=== PATIENT | female | born 1940 | race Caucasian/White ===

== ENCOUNTER → 2016-07-13 | Outpatient (REF) | payer MEDICARE, BC ==
[2016-07-13 13:00] LABS: CREATININE FOR GFR 1.04 MG/DL (0.55-1.02)
== END ==
LOC: M LABDRAW1 11:33
PROVIDERS: ATTEND Nurse Practitioner Women's Health
DX: Z01.812 Encounter for preprocedural laboratory examination (principal)

== ENCOUNTER → 2016-07-21 | Outpatient (CLI) | payer MEDICARE, BC ==
[~2016-07-21] MED LIST: ISOVUE-370 76% 100ML VIAL (Q9967) As Ordered ONE
--- NOTE | 2016-07-21 13:37 | REP ---
Clinical: Hematuria. Technique: Axial precontrast, contrast enhanced, and delayed images of the abdomen and pelvis using 100 ml Isovue 370 intravenous contrast material with delayed coronal and sagittal re-formations. Findings: Evaluation of the urinary tract system demonstrates normal symmetric enhancement to the bilateral kidneys and excretion into the collecting system on delayed imaging. Bilateral parapelvic cysts are identified measuring roughly up to 1.4 cm in the right kidney and 2.5 cm in left kidney. There is no nephrolithiasis, perinephric stranding, hydroureteronephrosis, or renal mass lesion. Liver, spleen, pancreas, bilateral adrenal glands are normal. Cholelithiasis noted without CT evidence for acute cholecystitis the enteric system is without obstruction or acute inflammatory process scattered colonic diverticula noted without acute diverticulitis. Pelvis demonstrates collapsed normal bladder and age-appropriate uterus/adnexa with pessary in satisfactory position. No pelvic fluid or ascites. No adenopathy. No free air. Abdominal aorta demonstrates mild atherosclerotic changes without aneurysm or dissection. Musculoskeletal structures demonstrate age-related changes including benign hemangioma at L1. Lung bases are clear. Impression: 1. Few bilateral parapelvic cysts. Otherwise normal appearance to the urinary tract system. 2. Cholelithiasis. 3. Scattered diverticula without acute diverticulitis. 4. Benign hemangioma involving the L1 vertebral body. Signed by Hosea Paris MD 07/21/2016 01:28 P
== END ==
LOC: M RAD 12:44
PROVIDERS: ATTEND Obstetrics & Gynecology
DX: R31.9 Hematuria, unspecified (principal)
CPT/HCPCS: 74178; Q9967

== ENCOUNTER → 2016-07-28 | Outpatient (REF) | payer MEDICARE, BC | LOC: M LAB REF 16:24 | PROVIDERS: ATTEND Obstetrics & Gynecology | DX: N32.81 Overactive bladder (principal) ==

== ENCOUNTER → 2016-08-18 | Outpatient (REF) | payer MEDICARE, BC | LOC: M LABDRAW1 15:33 | PROVIDERS: ATTEND Family Medicine | DX: R35.0 Frequency of micturition (principal); R73.01 Impaired fasting glucose ==

== ENCOUNTER → 2016-09-28 | Outpatient (REF) | payer MEDICARE, BC | LOC: M LAB REF 16:32 | PROVIDERS: ATTEND Nurse Practitioner Women's Health | DX: R35.0 Frequency of micturition (principal); R33.9 Retention of urine, unspecified; E31.9 Polyglandular dysfunction, unspecified ==

== ENCOUNTER → 2016-11-11 | Outpatient (REF) | payer MEDICARE, BC | LOC: M LAB REF 11:35 | PROVIDERS: ATTEND Nurse Practitioner Women's Health | DX: Z87.440 Personal history of urinary (tract) infections (principal); R31.29 Other microscopic hematuria ==

== ENCOUNTER → 2016-11-29 | Outpatient (REF) | payer MEDICARE, BC | LOC: M LAB REF 16:40 | PROVIDERS: ATTEND Nurse Practitioner Women's Health | DX: Z87.440 Personal history of urinary (tract) infections (principal); N39.0 Urinary tract infection, site not specified; R31.29 Other microscopic hematuria ==

== ENCOUNTER → 2016-12-15 | Outpatient (REF) | payer MEDICARE, BC | LOC: M LAB REF 16:18 | PROVIDERS: ATTEND Nurse Practitioner Women's Health | DX: Z87.440 Personal history of urinary (tract) infections (principal); R31.29 Other microscopic hematuria ==

== ENCOUNTER → 2016-12-29 | Outpatient (REF) | payer MEDICARE, BC | LOC: M LAB REF 17:37 | PROVIDERS: ATTEND Obstetrics & Gynecology | DX: Z87.440 Personal history of urinary (tract) infections (principal); R35.1 Nocturia ==

== ENCOUNTER → 2017-01-04 | Outpatient (REF) | payer MEDICARE, BC ==
[~2017-01-04] MED LIST changes: +ASPI81TA85 PO; +ATEN50TA2 PO; +ATOR1TAB21 PO; -ISOVUE-370 76% 100ML VIAL (Q9967) As Ordered ONE; +LISI-538 PO; +MYRB25TA PO
[2017-01-04 20:04] LABS: YEAST LIKE CELL URINE AUTO MODERATE
== END ==
LOC: M LAB REF 17:13
PROVIDERS: ATTEND Obstetrics & Gynecology
DX: Z87.440 Personal history of urinary (tract) infections (principal); Z79.899 Other long term (current) drug therapy

== ENCOUNTER → 2017-01-28 | Outpatient (REF) | payer MEDICARE, BC | LOC: M LAB REF 16:16 | PROVIDERS: ATTEND Obstetrics & Gynecology | DX: Z87.440 Personal history of urinary (tract) infections (principal) ==

== ENCOUNTER 2017-02-08 12:58 | Inpatient (IN) | payer MEDICARE, BC ==
[~2017-02-08] VITALS: Ht 162.6 cm; Wt 87.0 kg
[2017-02-08] MEDS ORDERED: ATEN50TA2 PO (13:24)
[2017-02-08] MEDS ORDERED: ATOR1TAB21 PO (13:24)
[2017-02-08] MEDS ORDERED: ASPI81TA85 PO (13:24)
[2017-02-08] MEDS ORDERED: MYRB25TA PO (13:24)
[2017-02-08] MEDS ORDERED: LISI-538 PO (13:24)
[2017-02-08] MEDS ORDERED: NS 500 ML IV ONE (14:00)
--- NOTE | 2017-02-08 14:23 | REP ---
CT of the brain without IV contrast: There are no comparisons. There is no subdural or epidural hematoma. There is no hemorrhage, edema, mass effect or midline shift. Cortical stripe is unremarkable. Ventricles are normal size and midline. The visualized paranasal sinuses and mastoid air cells are clear. Impression: There is no hemorrhage, acute infarct or mass. No subdural or epidural hematoma. Otherwise, negative CT study of the brain. Signed by Matthieu Antony MD 02/08/2017 02:14 P
--- NOTE | 2017-02-08 14:44 | REP ---
AP PORTABLE CHEST: 02/08/2017 COMPARISON: 04/28/2016 CLINICAL HISTORY: Chest pain. The lung shields are well inflated. There is no pleural effusion, lateral pleural thickening, apical scarring, pneumothorax. Heart, mediastinal, hilar contours normal. Aorta and airway intact. Bony thorax shows no focal lesion. IMPRESSION: 1. No acute cardiopulmonary change. Stable chest. Signed by Naresh Skinner MD 02/08/2017 07:04 P
[2017-02-08 14:51] LABS: BASO % 0.2 % (0.0-1.0); EOS # 0.1 K/mm3 (0.0-0.50); LARGE UNSTAINED CELL # 0.1 K/mm3 (0.0-0.4); LARGE UNSTAINED CELL % 1.3 % (0.0-4.0); LYMPH # 1.6 K/mm3 (1.5-4.5); LYMPH % 15.4 % (24.0-44.0); MEAN CORPUSCULAR HEMOGLOBIN 28.1 pg (27.0-33.0); MEAN CORPUSCULAR HGB CONC 32.3 g/dl (32.0-36.5); MONO # 0.5 K/mm3 (0.0-0.8); MONO % 5.1 % (0.0-5.0); NEUTROPHILS # 7.6 K/mm3 (1.8-7.7); PLATELET COUNT, AUTOMATED 418 k/mm3 (150-450); RED CELL DISTRIBUTION WIDTH 14.6 % (11.5-14.5); WHITE BLOOD COUNT 9.9 K/mm3 (4.0-10.0)
[2017-02-08 14:55] LABS: INR 1.07
[2017-02-08 15:07] LABS: ALBUMIN 3.2 GM/DL (3.2-5.2); ALBUMIN/GLOBULIN RATIO 0.91 (1.00-1.93); ALKALINE PHOSPHATASE 92 U/L (45-117); ALT/SGPT 13 U/L (12-78); ANION GAP 12 MEQ/L (8-16); AST/SGOT 9 U/L (15-37); BILIRUBIN,DIRECT 0.1 MG/DL (0.0-0.2); BILIRUBIN,TOTAL 0.4 MG/DL (0.2-1.0); BLOOD UREA NITROGEN 82 MG/DL (7-18); CALCIUM LEVEL 9.1 MG/DL (8.8-10.2); CARBON DIOXIDE LEVEL 14 MEQ/L (21-32); CHLORIDE LEVEL 109 MEQ/L (98-107); CREATININE FOR GFR 3.96 MG/DL (0.55-1.02); GLOMERULAR FILTRATION RATE 11.7 (>39); GLUCOSE, FASTING 105 MG/DL (83-110); SODIUM LEVEL 135 MEQ/L (136-145); TOTAL PROTEIN 6.7 GM/DL (6.4-8.2)
[2017-02-08 15:22] LABS: POTASSIUM SERUM 6.5 MEQ/L (3.5-5.1)
[2017-02-08] MEDS ORDERED: SOD POLYSTYRENE SULFONATE SUSP 15 GM/60 ML UD PO ONE ×3 (15:45→23:00)
--- NOTE | 2017-02-08 17:32 | REP ---
RENAL ULTRASOUND: HISTORY: Renal failure. The kidneys are normal in echogenicity. The right kidney measures 4.2 cm in transverse by 4.7 cm in AP x 10.6 cm in cephalocaudal dimensions. The left kidney measures 4 cm in transverse x 4.9 cm in AP x 10.5 cm in cephalocaudal dimensions. There is mild to moderate hydronephrosis and hydroureter bilaterally. There is no mass. Calcifications are present in the gallbladder consistent with cholelithiasis. Debris is present in the urinary bladder. IMPRESSION: 1. There is mild to moderate hydronephrosis and hydroureter bilaterally. 2. Cholelithiasis. Signed by Kranthi Escobar MD 02/08/2017 05:53 P
[2017-02-08] MEDS ORDERED: cefTRIAXone SOD 2 GM in D5W MINI-BAG PLUS 50 ML IV SCH (18:00)
[2017-02-08] MEDS ORDERED: ACETAMINOPHEN TAB 650MG DOSE (2X325MG) PO PRN (18:30)
[2017-02-08] MEDS ORDERED: NS 1,000 ML IV SCH (18:30)
[2017-02-08] MEDS ORDERED: ONDANSETRON 4MG/2ML VIAL (J2405) IV PRN (18:30)
[2017-02-08] MEDS ORDERED: PANTOPRAZOLE 40MG INJ (PROTONIX) (C9113) IV SCH (18:30)
[2017-02-08 19:40] VITALS: BP 134/75
[2017-02-08 20:46] LABS: PERCENT SATURATION 13.7 % (13.2-45.0)
[2017-02-08 20:48] LABS: CALCIUM LEVEL 9.1 MG/DL (8.8-10.2); CREATININE FOR GFR 3.86 MG/DL (0.55-1.02); GLOMERULAR FILTRATION RATE 12.1 (>39)
--- NOTE | 2017-02-08 20:50 | REPUSA ---
CLINICAL HISTORY: Priors--Hydronephrosis, nephrolithiasis, ureteral stone? - Patient said no abdomen /flank pain. TECHNIQUE: Multiple axial, coronal, sagittal CT images were obtained through the abdomen and pelvis without administration of oral or IV contrast material. FINDINGS: The liver is of uniform attenuation without mass or defect. There is no intra or extrahepatic biliar y ductal dilatation. The spleen is normal. The gallbladder is packed with calcified gallstones, the largest of which measures 13 mm. A small hiatal hernia is present. A small fat-containing umbilica l hernia is seen. The pancreas is of normal contour and attenuation characteristics. There is no cheryl dence of adrenal mass. The kidneys are normal in size, shape and configuration. There is evidence of severe bilateral hydro ureteronephrosis. There is a calcification noted adjacent to the left distal ureter measuring 2.5 mm . Passive renal calculus is not totally excluded. There is evidence of stranding adjacent to the ur eters as well as bladder. Bilateral ureteritis is suspected. There is no evidence for appendicitis. There is no bowel wall thickening. No evidence for small or large bowel obstruction. There is no evidence of abdominal ascites or lymphadenopathy. There is no evidence of intrinsic or extrinsic bladder mass. There is no pelvic ascites or lymphaden opathy. The uterus and ovaries are grossly unremarkable. A pessary is in place. There is evidence of bladd er prolapse. There is bladder wall thickening which measures up to 7 mm, please correlate clinically to exclude cystitis. Images of the lung bases show no evidence of pleural or parenchymal mass. There are no pleural effus ions. The bony structures are free of lytic or blastic lesions. IMPRESSION: 1. The gallbladder is packed with calcified gallstones, the largest of which measures 13 mm. 2. A small hiatal hernia is present. 3. A small fat-containing umbilical hernia is seen. 4. A pessary is in place. There is evidence of bladder prolapse. There is bladder wall thickening which measures up to 7 mm, please correlate clinically to exclude cystitis. 5. There is evidence of severe bilateral hydroureteronephrosis. There is evidence of stranding gardenia cent to the ureters as well as bladder. Bilateral ureteritis is suspected. 6. There is a calcification noted adjacent to the left distal ureter measuring 2.5 mm. Passive felicia l calculus is not totally excluded. Thank you for your kind referral of this patient. We appreciate the opportunity to participate in thi s patient's care.
[2017-02-08 20:54] LABS: FOLATE 10.6 NG/ML (>5.4)
[2017-02-08 20:58] LABS: POTASSIUM SERUM 5.8 MEQ/L (3.5-5.1)
[2017-02-08] MEDS ORDERED: CALCIUM GLUCONATE 1,000 MG in D5W MINI-BAG PLUS 100 ML IV ONE (21:15)
--- NOTE | 2017-02-08 21:16 | HPE ---
DATE OF ADMISSION: 02/08/2017 TIME PATIENT WAS SEEN: 1730 hours PRIMARY CARE PROVIDER: Dr. Angelina Caputo CHIEF COMPLAINT: Acute renal failure, sent by Dr. Hill's office. HISTORY OF THE PRESENT ILLNESS: A 76-year-old female with past medical history of recurrent urinary tract infection (UTI), hyperlipidemia, hypertension, overactive bladder, presented with acute renal failure, was called by Dr. Hill's office for patient to come to the emergency room this afternoon. Per patient, she has been feeling a little bit lightheaded for about 2 weeks, and she had a urinary tract infection back in middle of January and received unspecified antibiotic. Per patient, it was sulfa-based; therefore, possibly Bactrim. However, the patient could not go into detail. Per patient, she has completed the course and also a few weeks ago, the patient started having hypotensive episodes with blood pressure in the 70s over 60s and her primary care provider has stopped her atenolol and also yesterday just stopped her lisinopril. She stated that over the past 2 weeks, she has also been getting more shortness of breath when she walks stairs. Otherwise, denies any chest pain, denies any fever. Admits to chills. Denies any abdominal pain, nausea, vomiting, diarrhea, constipation. Her last bowel movement was yesterday, which was normal. Denies any blood in the urine. However, she does have a chronic overactive bladder. According to her, she would have incontinence as well. She denies any recent traveling or sick contact. Denies any back pain. ALLERGIES: No known drug allergies. MEDICATIONS: - atenolol 50 mg, one tablet by mouth daily - lisinopril 20 mg, one tablet by mouth daily, which was discontinued by primary care just before the admission CURRENT HOME MEDICATIONS: - aspirin 81 mg one tablet by mouth daily - atorvastatin 20 mg one tablet by mouth daily - Myrbetriq 25 mg one tablet by mouth daily PAST MEDICAL HISTORY: 1. Recurrent urinary tract infection (UTI) monthly per patient. 2. Hyperlipidemia. 3. Overactive bladder. 4. Hypertension. PAST SURGICAL HISTORY: None per patient. SOCIAL HISTORY: Patient denies any smoking. Drinks occasionally. Denies any recreational drug use. Patient lives alone with two cats. The patient does have children in [place] who come to visit her regularly. FAMILY HISTORY: Patient's mother is still alive, who is 98 years old. Father in World War II. REVIEW OF SYSTEMS: GENERAL: Patient admits to a few pounds weight loss over the past few weeks due to she has been feeling drowsy and lightheaded and does not want to eat. Denies any recent traveling or sick contact. Denies any fever. Admits to chills. HEENT: Denies any changes with vision, smell, hearing or taste. CARDIOVASCULAR: Denies any chest pain. Admits to exertional shortness of breath, and she has been following with Dr. Gottlieb recently. Per patient, she had a negative echocardiogram at Dr. Gottlieb's office. Denies any palpitations and sleeps with two pillows at night. Denies any shortness of breath if she lays flat. PULMONARY: Denies any pulmonary disease. Denies any shortness of breath, any wheezing, any cough. GASTROINTESTINAL: Denies any abdominal pain, nausea, vomiting, diarrhea, constipation. Denies any blood in the stool. GENITOURINARY: Admits to overactive bladder at baseline. Admits to stress incontinence. Admits to seeing Dr. Hill at her office and recurrent urinary tract infection (UTIs) about once every month. Denies any blood in the urine. MUSCULOSKELETAL: Denies any pain anywhere. HEMATOLOGY/ONCOLOGY: Denies any easy of bruising or any bleeding anywhere. ENDOCRINE: Denies any polydipsia, polyuria. Denies any heat intolerance. Admits to feeling cold more often recently, especially in the past 2 weeks. NEUROLOGICAL: Denies any weakness on any one side of her body; however, she has been feeling drowsy for the past 2 weeks. Denies any change in sensation, however, denies any spinning sensation. PSYCHIATRIC: Denies any anxiety, depression. PHYSICAL EXAMINATION: Temperature 98, pulse 98, respirations 18, blood pressure 140/68, oxygen was saturating at 96% on room air. Her initial presenting blood pressure was 98/64. GENERAL: The patient is a pleasant elderly female who was alert, awake, oriented times three, does not appear to be in distress, sitting comfortably in her bed with the head elevated at 30 degrees. HEENT: Normocephalic, atraumatic. Extraocular motor intact. Mucosa moist. NECK: Supple. No neck lymphadenopathy. CARDIOVASCULAR: Tachycardic. Normal S1, S2. No murmurs, rubs or gallops. LUNGS: Clear to auscultation bilaterally. No wheezing, rales, or rhonchi. ABDOMEN: Positive bowel sounds. Soft, nontender, nondistended. No peritoneal signs. No ecchymosis. EXTREMITIES: No edema, clubbing or cyanosis. SKIN: Warm and dry. NEUROLOGICAL: Cranial nerves II-XII intact. No focal neurologic deficit. LABORATORY DATA: WBC 9.9, hemoglobin 11.7, hematocrit is 36.2 with a platelet count of 418, an MCV of 87. Neutrophil percentage was 77, lymphocyte 15.4, monocyte 5.1. Sodium 135, potassium elevated at 6.5, chloride 109, bicarbonate was low at 14, anion gap 12, BUN 82, creatinine 3.96, GFR 11.7, fasting glucose 105, lactic acid 1.1, calcium was 9.1, magnesium 2.3, total bilirubin 0.4, direct bilirubin 0.1, AST 9, ALT 13, alkaline phosphatase 92, total CK 46, CK-MB 1, troponin less than 0.02. BNP was 7.4, total protein 6.7, albumin 3.2, TSH 2.5. PT 14, INR 1.07. The patient's urinalysis shows turbid appearance, 2+ protein, 1+ glucose, 1+ blood, 3+ leukocyte esterase, WBC too many too count, RBC was 7, bacteria was 3+. Urine lytes shows osmolality of 273, which was low, urine creatinine 96, urine sodium 49. Blood culture times two are pending. Urine culture has been ordered. The patient had a CT head without contrast in the emergency room this afternoon - shows no hemorrhage, no acute infarction or mass, no subdural or epidural hematoma. Negative CT study of the brain. She also had a portable chest x-ray, shows no acute cardiopulmonary changes, stable chest. She also had a renal ultrasound, shows mild to moderate bilateral hydronephrosis and hydroureter, and cholelithiasis. The patient had a CT of the abdomen and pelvis done without contrast. The result is pending. ASSESSMENT AND PLAN: A 76-year-old female with a past medical history of recurrent urinary tract infection, seen in Dr. Hill's office, hyperlipidemia, hypertension, overactive bladder, was sent by Dr. Hill's office due to abnormal lab, presented with: 1. Acute kidney injury, on chronic kidney disease with a creatinine of 3.96, glomerular filtration rate (GFR) of only 11.7. Renal ultrasound shows bilateral hydronephrosis and hydroureter. Urology was consulted, recommended CT of the abdomen and pelvis, which has been done; however, result is pending. At this point, the patient's acute renal failure was likely secondary to pyelonephritis and acute urinary tract infection. Rocephin 2 grams IV every 24 hours has been started. If the patient does show an obstructive uropathy, if procedure is required, possibly patient may need to be transferred due to nephrostomy tube cannot be arranged overnight at [facility] per urology. Also, due to [facility] no longer has an interventional radiologist. At this point, will recheck basic metabolic panel at midnight and continue to monitor the patient's intake and output. 2. Hyperkalemia with potassium of 6.5. Likely secondary to acute renal injury. Kayexalate was given in the emergency room. A repeat basic metabolic panel was ordered. Result is pending. Will follow. At this point, the patient does not have lactic acidosis, and she did have a bowel movement after Kayexalate. Electrocardiogram (EKG) did not show significant T wave spikes. At this point, will continue to monitor and will trend the patient's potassium level. 3. Anemia with a hemoglobin of 11.7, appears to be reduced based on patient's baseline. Last hemoglobin was 13.1 in January 2016. Will order occult blood and iron study. 4. Hyperlipidemia. Continue home statin. 5. Overactive bladder. Will hold the patient's Myrbetriq for now. 6. History of hypertension. The patient is not on any blood pressure medication, which was discontinued prior to admission by primary. Will continue to monitor patient's blood pressure closely for any signs of septic shock. 7. Deep vein thrombosis (DVT) prophylaxis with heparin 5000 units subcutaneously every 8 hours. 8. Fluids, electrolytes and diet: The patient is on normal saline at a rate of 70 mL per hour. The patient does have hyperkalemia and repeat lab is pending. The patient is currently nothing by mouth due to possible urology procedure this evening versus in the morning. DISPOSITION: Patient has acute renal failure, possibly secondary to urinary tract infection versus obstructive uropathy. Urology has been consulted. Will follow the recommendation. Will followup with result from CT of abdomen and pelvis. The patient has been discussed with attending doctor, Dr. Riya Castillo. My preceptor for this patient encounter was Dr. Riya Castillo. The preceptor was physically present in the building during the encounter and was fully available. As needed, all aspects of the patient interview, examination, medical decision making process, and medical care plan development were reviewed and approved by the preceptor. The preceptor is aware and concurs with the plan as stated in the body of this note and will attest to such by his/her co-signature. I have seen and examined the patient, and discussed the case with the resident. I agree with the following assessment mentioned above. NATALI
[2017-02-08] MEDS ORDERED: HEPARIN SOD (PORCINE) 5000 UNITS/ML VIAL SC SCH (22:00)
[2017-02-08 22:38] VITALS: BP 116/65
[2017-02-08] MEDS ORDERED: SLF 3 ML SYR IV PRN (23:00)
[2017-02-09 00:39] VITALS: BP 128/65
[2017-02-09 01:01] LABS: BASO % 0.3 % (0.0-1.0); EOS # 0.1 K/mm3 (0.0-0.50); EOS % 1.1 % (0.0-3.0); LARGE UNSTAINED CELL # 0.1 K/mm3 (0.0-0.4); LARGE UNSTAINED CELL % 1.2 % (0.0-4.0); LYMPH # 1.5 K/mm3 (1.5-4.5); LYMPH % 12.7 % (24.0-44.0); MEAN CORPUSCULAR HEMOGLOBIN 27.8 pg (27.0-33.0); MONO # 0.6 K/mm3 (0.0-0.8); MONO % 5.3 % (0.0-5.0); NEUTROPHILS # 9.1 K/mm3 (1.8-7.7); NEUTROPHILS % 79.4 % (36.0-66.0); PLATELET COUNT, AUTOMATED 458 k/mm3 (150-450); RED CELL DISTRIBUTION WIDTH 14.4 % (11.5-14.5); WHITE BLOOD COUNT 11.5 K/mm3 (4.0-10.0)
[2017-02-09 01:07] LABS: CALCIUM LEVEL 9.4 MG/DL (8.8-10.2); CREATININE FOR GFR 3.56 MG/DL (0.55-1.02); GLOMERULAR FILTRATION RATE 13.3 (>39)
[2017-02-09 01:08] LABS: POTASSIUM SERUM 5.9 MEQ/L (3.5-5.1)
--- NOTE | 2017-02-09 05:12 | DSES ---
DATE OF ADMISSION: 02/08/2017 DATE OF DISCHARGE: 02/09/2017 ADMISSION DIAGNOSES: 1. Acute kidney injury on chronic kidney disease. 2. Hyperkalemia. 3. Chronic anemia. 4. Hyperlipidemia. 5. Overactive bladder. 6. History of hypertension. DISCHARGE DIAGNOSES: 1. Acute renal failure secondary to bilateral hydroureteronephrosis secondary to possible urinary tract infection (UTI). 2. Hyperkalemia. 3. Anemia. RESIN PAINTER: Dr. Dewitt from urology. PROCEDURES AND IMAGING: On 02/08/2017, patient had a negative CT head without contrast; and on 02/08/2017, patient had a portable chest x-ray done, which shows no acute changes. On 02/08/2017, patient also had a renal ultrasound, which shows mild to moderate hydronephrosis with hydroureter bilaterally and cholelithiasis. A CT of abdomen and pelvis was done later on and shows a gallbladder that was packed with calcified gallstones, largest one measuring 13 mm. A small hiatal hernia present. A small fat-containing umbilical hernia is seen. Pessary is in place. Evidence of bladder prolapse, bladder wall thickening measuring up to 7 mm; correlate clinically to exclude cystitis, and evidence of severe bilateral hydroureteronephrosis. Evidence of stranding adjacent to ureter as well as bladder. Bilateral ureteritis suspected. Calcification noted adjacent to the left distal ureter measuring 2.5 mm. Passive renal calculus is not totally excluded. LABS: WBC 9.9, hemoglobin 11.7, hematocrit 36.2 with a platelet count of 418. Sodium 138, potassium 5.8, chloride 112, bicarbonate 15, anion gap was 11, BUN was 80, and creatine 3.86. GFR 12.1, fasting glucose 120. Osmolality 314. Calcium 9.1. Iron 28, TIBC 205, transferrin saturation 13.7, ferritin 172. Magnesium was 2.3. BNP was only 7.4. Vitamin B12 of 581, folate 10.6. Coagulation shows INR of 1.07. Patient's urinalysis shows turbid urine, 2+ protein, 1+ glucose, 1+ blood, 3+ leukocyte esterase, WBC too many to count, RBC was 7, and 3+ bacteria. Urine osmolality was 273. Urine creatine was 96. Urine sodium is 49. Emergency room also ordered urine metanephrine, metanephrine to creatine ratio, and normetanephrine, which were all pending. Urine culture is pending. Blood culture times two are pending. HISTORY OF PRESENT ILLNESS: 76-year-old female with past medical history of recurrent UTI every month, follows Dr. Hill (gynecology), hyperlipidemia, hypertension, overactive bladder. Presented with acute renal failure. Was called to come to emergency room by Dr. Hill' office after result of blood work. Per patient, she has been feeling lightheaded for 2 weeks and she had a urinary tract infection around 2 weeks ago and received unspecified antibiotic. Per patient, it was sulfa-based and possibly Bactrim. Patient could not go into detail. She stated that she completed the course. However, she has been having hypotensive episode with blood pressure 70s over 60s, and her primary care provider has initially stopped atenolol and yesterday also stopped lisinopril. Patient stated that she has been also getting more shortness of breath when she walks stairs; otherwise, she denies any chest pain or any fever. Admits to chills for the past 2 weeks. Denies any abdominal pains, nausea, vomiting, diarrhea, constipation. Her last bowel movement was yesterday. It was normal per patient. Denies any blood in the urine. However, she does have a chronic overactive bladder. According to patient, she would have incontinence times two and she denies any recent traveling or sick contact. HOSPITAL COURSE: Urology was initially consulted, recommended a CT of abdomen and pelvis done, and the patient was started on Rocephin 2 grams every 24 hours for positive urinalysis for possible UTI. For patient's hyperkalemia, patient was given Kayexalate in the emergency room and a repeat potassium was found to be 5.9. At this point, CT result came back and shows bilateral hydroureteronephrosis, and urology recommended bilateral nephrostomy tube placement. However, upon contacting radiology, [facility] no longer does interventional nephrostomy tube due to lack of interventional radiologist. Therefore, urology has recommended to transfer patient to [facility], and [facility] transfer center was called, accepted the transfer, and patient has been accepted under care of Dr. Sosa; and this evening, patient agreed to transfer. DISCHARGE CONDITION: Stable. DISCHARGE TO: Patient will be transferred to [facility]. FOLLOWUP: Upon discharge from [facility], patient should see Dr. Angelina Caputo within 1 week upon discharge. DISCHARGE INSTRUCTIONS: If patient develops additional fever or chills upon discharge, patient should contact primary care provider or go to emergency room. Patient has been discussed with attending doctor, Dr. Moore. My preceptor for this patient encounter was Dr. Dillon Moore. The preceptor was physically present in the building during the encounter and was fully available. As needed, all aspects of the patient interview, examination, medical decision making process, and medical care plan development were reviewed and approved by the preceptor. The preceptor is aware and concurs with the plan as stated in the body of this note and will attest to such by his/her cosignature.
[2017-02-09] MEDS ORDERED: SLF 3 ML SYR IV SCH (06:00)
--- NOTE | 2017-02-10 23:35 | ECGEPIP ---
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
[2017-02-17 14:14] LABS: URINE METANEPHR/CREAT RATIO 0.9 (0.0-1.0)
== END 2017-02-09 00:57 | DRG 694 ==
LOC: M ED 12:58 → M ED INP 18:21 → M PCU 19:35
PROVIDERS: ADMIT Internal Medicine; ATTEND Internal Medicine
DX: N13.1 Hydronephrosis with ureteral stricture, not elsewhere classified (principal); N17.9 Acute kidney failure, unspecified; N39.0 Urinary tract infection, site not specified; E87.5 Hyperkalemia; E78.5 Hyperlipidemia, unspecified; D64.9 Anemia, unspecified; Z87.440 Personal history of urinary (tract) infections; N32.81 Overactive bladder; Z79.82 Long term (current) use of aspirin; Z79.899 Other long term (current) drug therapy

== ENCOUNTER → 2017-02-17 | Outpatient (REF) | payer MEDICARE, BC ==
[2017-02-17 13:28] LABS: BASO % 0.4 % (0.0-1.0); EOS # 0.2 K/mm3 (0.0-0.50); EOS % 2.8 % (0.0-3.0); LARGE UNSTAINED CELL # 0.1 K/mm3 (0.0-0.4); LYMPH # 1.5 K/mm3 (1.5-4.5); LYMPH % 20.6 % (24.0-44.0); MEAN CORPUSCULAR HEMOGLOBIN 27.1 pg (27.0-33.0); MEAN CORPUSCULAR HGB CONC 31.2 g/dl (32.0-36.5); MONO # 0.3 K/mm3 (0.0-0.8); MONO % 4.6 % (0.0-5.0); NEUTROPHILS # 4.8 K/mm3 (1.8-7.7); NEUTROPHILS % 70.7 % (36.0-66.0); PLATELET COUNT, AUTOMATED 349 k/mm3 (150-450); RED CELL DISTRIBUTION WIDTH 14.7 % (11.5-14.5); WHITE BLOOD COUNT 6.9 K/mm3 (4.0-10.0)
[2017-02-17 13:48] LABS: ALBUMIN 3.1 GM/DL (3.2-5.2); BILIRUBIN,TOTAL 0.3 MG/DL (0.2-1.0); CALCIUM LEVEL 8.3 MG/DL (8.8-10.2); CREATININE FOR GFR 1.36 MG/DL (0.55-1.02); GLOMERULAR FILTRATION RATE 40.2 (>39); POTASSIUM SERUM 4.5 MEQ/L (3.5-5.1); TOTAL PROTEIN 6.2 GM/DL (6.4-8.2)
== END ==
LOC: M LAB REF 12:44
PROVIDERS: ATTEND Family Medicine
DX: I10 Essential (primary) hypertension (principal)

== ENCOUNTER → 2017-03-04 | Outpatient (REF) | payer MEDICARE, BC | LOC: M LAB REF 10:28 | PROVIDERS: ATTEND Obstetrics & Gynecology | DX: Z87.440 Personal history of urinary (tract) infections (principal); R31.29 Other microscopic hematuria ==

== ENCOUNTER → 2017-03-22 | Outpatient (REF) | payer MEDICARE, BC ==
[2017-03-22 11:23] LABS: BASO % 0.5 % (0.0-1.0); EOS # 0.2 K/mm3 (0.0-0.50); EOS % 3.1 % (0.0-3.0); LARGE UNSTAINED CELL # 0.1 K/mm3 (0.0-0.4); LYMPH # 1.9 K/mm3 (1.5-4.5); LYMPH % 25.9 % (24.0-44.0); MEAN CORPUSCULAR HEMOGLOBIN 27.2 pg (27.0-33.0); MEAN CORPUSCULAR HGB CONC 31.1 g/dl (32.0-36.5); MEAN CORPUSCULAR VOLUME 87.5 fl (80.0-96.0); MONO # 0.5 K/mm3 (0.0-0.8); MONO % 6.3 % (0.0-5.0); NEUTROPHILS # 4.5 K/mm3 (1.8-7.7); NEUTROPHILS % 63.3 % (36.0-66.0); PLATELET COUNT, AUTOMATED 348 k/mm3 (150-450); RED CELL DISTRIBUTION WIDTH 14.5 % (11.5-14.5); WHITE BLOOD COUNT 7.1 K/mm3 (4.0-10.0)
[2017-03-22 11:48] LABS: ALBUMIN 3.2 GM/DL (3.2-5.2); ALBUMIN/GLOBULIN RATIO 1.03 (1.00-1.93); BILIRUBIN,TOTAL 0.3 MG/DL (0.2-1.0); CALCIUM LEVEL 8.7 MG/DL (8.8-10.2); CREATININE FOR GFR 1.19 MG/DL (0.55-1.02); GLOMERULAR FILTRATION RATE 46.9 (>39); POTASSIUM SERUM 3.9 MEQ/L (3.5-5.1); TOTAL PROTEIN 6.3 GM/DL (6.4-8.2)
== END ==
LOC: M LABDRAW1 09:29
PROVIDERS: ATTEND Family Medicine
DX: N17.8 Other acute kidney failure (principal)

== ENCOUNTER → 2017-03-22 | Outpatient (REF) | payer MEDICARE, BC ==
[2017-03-22 11:28] LABS: CALCIUM LEVEL 8.8 MG/DL (8.8-10.2); CREATININE FOR GFR 1.18 MG/DL (0.55-1.02); GLOMERULAR FILTRATION RATE 47.4 (>39)
== END ==
LOC: M LABDRAW1 09:34
DX: N13.30 Unspecified hydronephrosis (principal)

== ENCOUNTER → 2017-04-12 | Outpatient (CLI) | payer MEDICARE, BC ==
[~2017-04-12] MED LIST changes: +ISOVUE-370 76% 100ML VIAL (Q9967) As Ordered ONE
--- NOTE | 2017-04-12 19:07 | REP ---
Multiphase CT of the abdomen and pelvis: Studies performed without and with IV contrast. After IV contrast, multiphase scanning is performed. Comparison is 02/08/2017. 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 The right ureter is dilated. This is unchanged. However, there is no right ureteral calculus. This may be secondary to a stricture of the distal right ureter. There is mild right hydronephrosis. There is a mild left hydronephrosis. The left ureter is minimally dilated. There is no left ureteral calculus. The bladder is not distended. The bladder wall is diffusely mildly thickened. This could be artifact from under distension, cystitis or neoplasm. There is a pessary in the vaginal vault. This is unchanged. The uterus and adnexa are unremarkable. The visualized lung shields are unremarkable. The hepatic parenchyma is homogeneous on all phases of the study. There is a gallbladder calculus with rim calcification in the gallbladder fundus measuring 1.7 cm in diameter, not significantly changed. There are multiple other tiny gallbladder calculi, also unchanged. There is no biliary duct dilatation. The pancreas and spleen are unremarkable. The adrenals are unremarkable. The abdominal aorta is unremarkable. There is no bowel distension. Pelvis: There is sigmoid diverticulosis without diverticulitis. Impression: The right ureter is dilated. There is mild right hydronephrosis. The left ureter is mildly dilated. There is mild left hydronephrosis. There are no ureteral calculi on the right on the left. The ureteral dilatation may be secondary to distal ureteral structures. There is a pessary. The bladder is incompletely distended. There is circumferential bladder wall thickening, nonspecific, artifact from incomplete distension versus cystitis versus neoplasm. No ascites or adenopathy. Cholelithiasis without biliary duct dilatation, unchanged. No Signed by Matthieu Antony MD 04/12/2017 06:58 P
== END ==
LOC: M RAD 15:03
PROVIDERS: ATTEND Student in an Organized Health Care Education/Training Program
DX: R31.9 Hematuria, unspecified (principal)
CPT/HCPCS: 74178; Q9967

== ENCOUNTER → 2017-05-02 | Outpatient (REF) | payer MEDICARE, BC ==
[~2017-05-02] MED LIST changes: -ISOVUE-370 76% 100ML VIAL (Q9967) As Ordered ONE
== END ==
LOC: M LAB REF 16:10
PROVIDERS: ATTEND Obstetrics & Gynecology
DX: Z87.440 Personal history of urinary (tract) infections (principal); R31.29 Other microscopic hematuria

== ENCOUNTER → 2017-06-29 | Outpatient (REF) | payer MEDICARE, BC | LOC: M LAB REF 13:17 | PROVIDERS: ATTEND Family Medicine | DX: R35.0 Frequency of micturition (principal) ==

== ENCOUNTER → 2017-09-20 | Outpatient (REF) | payer MEDICARE, BC ==
[2017-09-20 12:26] LABS: ALBUMIN 3.4 GM/DL (3.2-5.2); ALKALINE PHOSPHATASE 99 U/L (45-117); ALT/SGPT 16 U/L (12-78); ANION GAP 9 MEQ/L (8-16); AST/SGOT 11 U/L (7-37); BILIRUBIN,TOTAL 0.4 MG/DL (0.2-1.0); BLOOD UREA NITROGEN 19 MG/DL (7-18); CALCIUM LEVEL 8.5 MG/DL (8.8-10.2); CARBON DIOXIDE LEVEL 26 MEQ/L (21-32); CHLORIDE LEVEL 106 MEQ/L (98-107); CHOLESTEROL LEVEL 239 MG/DL (<200); CHOLESTEROL RISK RATIO 4.509 (<5); CREATININE FOR GFR 1.03 MG/DL (0.55-1.30); GLOMERULAR FILTRATION RATE 55.5 (>39); GLUCOSE, FASTING 90 MG/DL (70-100); HDL CHOLESTEROL 53 MG/DL (>40); LDL CHOLESTEROL 154.4 MG/DL (<100); NON-HDL-C 186 MG/DL; POTASSIUM SERUM 4.6 MEQ/L (3.5-5.1); SODIUM LEVEL 141 MEQ/L (136-145); TOTAL PROTEIN 6.8 GM/DL (6.4-8.2); TRIGLYCERIDES LEVEL 158 MG/DL (<150)
== END ==
LOC: M LABDRAW1 11:18
DX: I10 Essential (primary) hypertension (principal); E78.2 Mixed hyperlipidemia
CPT/HCPCS: 80053

== ENCOUNTER → 2017-10-27 | Outpatient (REF) | payer MEDICARE, BC ==
[2017-10-27 11:23] LABS: ALBUMIN 3.7 GM/DL (3.2-5.2); ALBUMIN/GLOBULIN RATIO 1.09 (1.00-1.93); ALKALINE PHOSPHATASE 101 U/L (45-117); ALT/SGPT 22 U/L (12-78); ANION GAP 7 MEQ/L (8-16); AST/SGOT 13 U/L (7-37); BILIRUBIN,TOTAL 0.4 MG/DL (0.2-1.0); BLOOD UREA NITROGEN 18 MG/DL (7-18); CALCIUM LEVEL 8.7 MG/DL (8.8-10.2); CARBON DIOXIDE LEVEL 27 MEQ/L (21-32); CHLORIDE LEVEL 109 MEQ/L (98-107); CHOLESTEROL LEVEL 210 MG/DL (<200); CHOLESTEROL RISK RATIO 3.333 (<5); GLOMERULAR FILTRATION RATE 51.3 (>39); GLUCOSE, FASTING 81 MG/DL (70-100); HDL CHOLESTEROL 63 MG/DL (>40); LDL CHOLESTEROL 105.8 MG/DL (<100); NON-HDL-C 147 MG/DL; POTASSIUM SERUM 4.4 MEQ/L (3.5-5.1); SODIUM LEVEL 143 MEQ/L (136-145); TOTAL PROTEIN 7.1 GM/DL (6.4-8.2); TRIGLYCERIDES LEVEL 206 MG/DL (<150)
== END ==
LOC: M LABDRAW1 10:47
DX: E78.2 Mixed hyperlipidemia (principal)
CPT/HCPCS: 80053

== ENCOUNTER → 2018-04-05 | Outpatient (REF) | payer MEDICARE, BC ==
[2018-04-05 19:12] LABS: APPEARANCE, URINE TURBID (CLEAR); BACTERIA, URINE AUTO NEGATIVE (NEGATIVE); BILIRUBIN, URINE AUTO NEGATIVE (NEGATIVE); BLOOD, URINE BLOOD 3+ (NEGATIVE); COLOR, URINE YELLOW (YELLOW); GLUCOSE, URINE (UA) AUTO NEGATIVE (NEGATIVE); KETONE, URINE AUTO NEGATIVE (NEGATIVE); LEUKOCYTE ESTERASE, URINE AUTO 3+ (NEGATIVE); MUCUS, URINE SMALL (NEGATIVE); NITRITE, URINE AUTO NEGATIVE (NEGATIVE); PROTEIN, URINE AUTO 1+ mg/dL (NEGATIVE); RBC, URINE AUTO 26 /HPF (0-3); SPECIFIC GRAVITY URINE AUTO 1.017 (1.002-1.035); SQUAMOUS EPITHELIAL CELL UR AU 0 /HPF (0-6); UROBILINOGEN, URINE AUTO 0.2 mg/dL (0.0-2.0); WBC, URINE AUTO 1 /HPF (0-3)
== END ==
LOC: M LAB REF 17:08
DX: Z87.440 Personal history of urinary (tract) infections (principal)
CPT/HCPCS: 81001

== ENCOUNTER → 2018-04-26 | Outpatient (REF) | payer MEDICARE, BC ==
[2018-04-26 18:39] LABS: APPEARANCE, URINE CLOUDY (CLEAR); BACTERIA, URINE AUTO 1+ (NEGATIVE); BILIRUBIN, URINE AUTO NEGATIVE (NEGATIVE); BLOOD, URINE BLOOD 3+ (NEGATIVE); COLOR, URINE YELLOW (YELLOW); GLUCOSE, URINE (UA) AUTO NEGATIVE (NEGATIVE); KETONE, URINE AUTO NEGATIVE (NEGATIVE); LEUKOCYTE ESTERASE, URINE AUTO 3+ (NEGATIVE); MUCUS, URINE SMALL (NEGATIVE); NITRITE, URINE AUTO NEGATIVE (NEGATIVE); PROTEIN, URINE AUTO 1+ mg/dL (NEGATIVE); RBC, URINE AUTO TNTC /HPF (0-3); SPECIFIC GRAVITY URINE AUTO 1.017 (1.002-1.035); SQUAMOUS EPITHELIAL CELL UR AU 5 /HPF (0-6); UROBILINOGEN, URINE AUTO 0.2 mg/dL (0.0-2.0); WBC, URINE AUTO 88 /HPF (0-3)
== END ==
LOC: M LAB REF 17:02
DX: N32.81 Overactive bladder (principal); Z87.440 Personal history of urinary (tract) infections
CPT/HCPCS: 81001

== ENCOUNTER → 2018-06-07 | Outpatient (REF) | payer MEDICARE, BC ==
[2018-06-07 12:44] LABS: BASO % 0.4 % (0.0-1.0); EOS # 0.2 10^3/uL (0.0-0.50); EOS % 2.3 % (0.0-3.0); HEMATOCRIT 41.9 % (36.0-47.0); HEMOGLOBIN 13.1 g/dl (12.0-15.5); IMMATURE GRANULOCYTE % 0.3 % (0-3.0); LYMPH # 1.7 10^3/uL (1.5-4.5); LYMPH % 21.9 % (24.0-44.0); MEAN CORPUSCULAR HEMOGLOBIN 26.3 pg (27.0-33.0); MEAN CORPUSCULAR HGB CONC 31.3 g/dl (32.0-36.5); MEAN CORPUSCULAR VOLUME 84.1 fl (80.0-96.0); MONO # 0.7 10^3/uL (0.0-0.8); MONO % 8.8 % (0.0-5.0); NEUTROPHILS # 5.2 10^3/uL (1.8-7.7); NEUTROPHILS % 66.3 % (36.0-66.0); PLATELET COUNT, AUTOMATED 359 10^3/uL (150-450); RED BLOOD COUNT 4.98 10^6/uL (4.00-5.40); WHITE BLOOD COUNT 7.8 10^3/uL (4.0-10.0)
[2018-06-07 13:12] LABS: ALBUMIN 3.5 GM/DL (3.2-5.2); ALBUMIN/GLOBULIN RATIO 1.13 (1.00-1.93); ALKALINE PHOSPHATASE 95 U/L (45-117); ALT/SGPT 18 U/L (12-78); ANION GAP 9 MEQ/L (8-16); AST/SGOT 16 U/L (7-37); BILIRUBIN,TOTAL 0.5 MG/DL (0.2-1.0); BLOOD UREA NITROGEN 15 MG/DL (7-18); CALCIUM LEVEL 8.7 MG/DL (8.8-10.2); CARBON DIOXIDE LEVEL 26 MEQ/L (21-32); CHLORIDE LEVEL 108 MEQ/L (98-107); CREATININE FOR GFR 1.04 MG/DL (0.55-1.30); GLOMERULAR FILTRATION RATE 54.7 (>39); GLUCOSE, FASTING 88 MG/DL (70-100); POTASSIUM SERUM 4.3 MEQ/L (3.5-5.1); SODIUM LEVEL 143 MEQ/L (136-145); TOTAL PROTEIN 6.6 GM/DL (6.4-8.2)
== END ==
LOC: M LABDRAW1 12:20
DX: Z01.818 Encounter for other preprocedural examination (principal); E78.2 Mixed hyperlipidemia
CPT/HCPCS: 80053

== ENCOUNTER 2018-06-12 11:06 | Day surgery (SDC) | payer MEDICARE, BC ==
[2018-06-12] MEDS: LR 1,000 ML IV (11:32)
[2018-06-12] MEDS ORDERED: MIDAZOLAM INJ 2 MG/2 ML VIAL (J2250) As Ordered (11:33)
[2018-06-12] MEDS ORDERED: LIDOCAINE 2% INJ 100 MG/5 ML SDV (FOR ANES.) As Ordered (11:33)
[2018-06-12] MEDS ORDERED: PROPOFOL 200 MG/20 ML VIAL As Ordered (11:33)
[2018-06-12] MEDS ORDERED: dexameTHASONE 4 MG/ML 1ML VIAL (J1100) As Ordered (11:33)
[2018-06-12] MEDS ORDERED: ONDANSETRON 4MG/2ML VIAL (J2405) As Ordered (11:33)
[2018-06-12] MEDS ORDERED: fentaNYL 100 MCG/2 ML INJECTION (J3010) As Ordered (11:33)
[2018-06-12] MEDS: ceFAZolin SOD 1 GM in D5W MINI-BAG PLUS 50 ML IV (14:05)
[2018-06-12] MEDS ORDERED: ePHEDrine SULFATE 25 MG/5 ML(5MG/ML) SYRINGE As Ordered (14:19)
[2018-06-12] MEDS ORDERED: PERCOCET 5MG/325MG TAB PO (15:15)
[2018-06-12] MEDS ORDERED: HYDROMORPHONE HCL 0.5 MG/ 0.5 ML SYRINGE (J1170 PER 1) IV (15:15)
[2018-06-12] MEDS ORDERED: LR 1,000 ML IV ×2 (15:15)
[2018-06-12] MEDS ORDERED: ONDANSETRON 4MG/2ML VIAL (J2405) IV (15:15)
[2018-06-12] MEDS ORDERED: IBUPROFEN 600 MG TAB PO (15:15)
[2018-06-12] MEDS ORDERED: fentaNYL 100 MCG/2 ML INJECTION (J3010) IV (15:15)
== END 2018-06-12 16:55 | disposition home or self-care (01) ==
LOC: M SDC 11:06
DX: N30.11 Interstitial cystitis (chronic) with hematuria (principal); N32.81 Overactive bladder; I10 Essential (primary) hypertension; E78.2 Mixed hyperlipidemia; N83.209 Unspecified ovarian cyst, unspecified side; R06.02 Shortness of breath; M12.9 Arthropathy, unspecified; Z79.899 Other long term (current) drug therapy; Z79.82 Long term (current) use of aspirin; Z78.0 Asymptomatic menopausal state; Z98.51 Tubal ligation status
CPT/HCPCS: 52204

== ENCOUNTER 2018-07-17 10:28 | Day surgery (SDC) | payer MEDICARE, BC ==
[~2018-07-17] VITALS: Ht 160 cm; Wt 85.3 kg
[~2018-07-17 10:28] MED LIST changes: +ATOR1TAB19 PO; +BIOT10008 PO; +CALC600T31 PO; +CALCTAB29 PO; +LUTE20TA PO; +NS 1,000 ML IV ONE; +SULF1TAB72 PO; +VITA50005 PO
[2018-07-17] MEDS ORDERED: LIDOCAINE 2% INJ 100 MG/5 ML SDV (FOR ANES.) As Ordered ONE (11:28)
[2018-07-17] MEDS ORDERED: PROPOFOL 200 MG/20 ML VIAL As Ordered ONE (11:28)
--- NOTE | 2018-07-17 12:37 | ROOR ---
Patient Name: Mary Thompson Procedure Date: 07/17/2018 12:20 PM Date of : 1940 Age: 77 Room: [facility] Gender: Female Note Status: Finalized Procedure: Total Colonoscopy to Cecum Indications: Screening for colorectal malignant neoplasm Providers: Dustin Ntaion MD Referring MD: Angelina Caputo MD Requesting Provider: Medicines: Monitored Anesthesia Care Complications: No immediate complications. Procedure: Pre-Anesthesia Assessment: - The heart rate, respiratory rate, oxygen saturations, blood pressure, adequacy of pulmonary ventilation, and response to care were monitored throughout the procedure. The Colonoscope was introduced through the anus and advanced to the cecum, identified by appendiceal orifice and ileocecal valve. The colonoscopy was performed without difficulty. The patient tolerated the procedure well. The quality of the bowel preparation was excellent. Findings: The perianal and digital rectal examinations were normal. Non-bleeding internal hemorrhoids were found during retroflexion. The hemorrhoids were small and Grade I (internal hemorrhoids that do not prolapse). Multiple small and large-mouthed diverticula were found in the recto-sigmoid colon, sigmoid colon and descending colon. The exam was otherwise without abnormality on direct and retroflexion views. Impression: - Non-bleeding internal hemorrhoids. - Diverticulosis in the recto-sigmoid colon, in the sigmoid colon and in the descending colon. - The examination was otherwise normal on direct and retroflexion views. - No specimens collected. - The exam was otherwise normal to the cecum. Recommendation: - Patient has a contact number available for emergencies. The signs and symptoms of potential delayed complications were discussed with the patient. Return to normal activities tomorrow. Written discharge instructions were provided to the patient. - High fiber diet. - Discharge patient to home. - Continue present medications. - Repeat colonoscopy for symptoms only. - Return to referring physician. - The findings and recommendations were discussed with the patient's family. Dustin Nation MD Dustin Nation MD 07/17/2018 12:37:29 PM This report has been signed electronically. Number of Addenda: 0 Note Initiated On: 07/17/2018 12:20 PM Estimated Blood Loss: Estimated blood loss: none.
[2018-07-17 13:10] VITALS: BP 144/76
== END 2018-07-17 13:14 | disposition home or self-care (01) ==
LOC: M OPP 10:28
PROVIDERS: ATTEND Internal Medicine Gastroenterology
DX: K64.0 First degree hemorrhoids (principal); K57.30 Diverticulosis of large intestine without perforation or abscess without bleeding; Z12.11 Encounter for screening for malignant neoplasm of colon

== ENCOUNTER 2018-09-21 11:38 | Emergency (ER) | payer MEDICARE, BC ==
[~2018-09-21 11:38] MED LIST changes: -NS 1,000 ML IV ONE
--- NOTE | 2018-09-21 12:48 | REP ---
RIGHT FINGERS, FOUR VIEWS: HISTORY: Fall. There is posterior dislocation of intermediate phalange of the 5th digit with respect to the proximal phalange. A small calcified density is present anterior to the head of the proximal phalange. This may represent ligamentous or tendon calcification or possibly an avulsion fracture fragment. IMPRESSION: There is posterior dislocation of the 5th intermediate phalange. Electronically Signed by Kranthi Escobar MD 09/21/2018 12:54 P
[2018-09-21 12:56] VITALS: BP 151/83
--- NOTE | 2018-09-21 13:35 | REP ---
RIGHT FINGERS, FOUR VIEWS: HISTORY: Post reduction. COMPARISON: 1205 hours, 09/21/2018 The patient is status post reduction of a posterior dislocation of the intermediate phalange of the 5th digit. There is no dislocation. A small calcified density is present anterior to the head of the proximal phalange. This may represent ligamentous or tendon calcification or possibly a small avulsion fracture fragment. An osteophyte is present at the distal interphalangeal joint. IMPRESSION: The patient is status post reduction of a posterior dislocation of the 5th intermediate phalange. There is anatomic alignment. Electronically Signed by Kranthi Escobar MD 09/21/2018 01:39 P
== END 2018-09-21 13:14 | disposition home or self-care (01) ==
LOC: M ED 11:38
DX: S63.286A Dislocation of proximal interphalangeal joint of right little finger, initial encounter (principal); W19.XXXA Unspecified fall, initial encounter; Y92.89 Other specified places as the place of occurrence of the external cause; Z79.899 Other long term (current) drug therapy; Z79.82 Long term (current) use of aspirin

== ENCOUNTER → 2019-05-16 | Outpatient (REF) | payer MEDICARE, BC ==
[2019-05-16 11:58] LABS: BASO % 0.3 % (0.0-1.0); EOS # 0.2 10^3/uL (0.0-0.5); EOS % 2.6 % (0.0-3.0); HEMOGLOBIN 13.7 g/dl (12.0-15.5); LYMPH # 1.8 10^3/uL (1.5-5.0); LYMPH % 23.7 % (24.0-44.0); MEAN CORPUSCULAR HGB CONC 31.1 g/dl (32.0-36.5); MEAN CORPUSCULAR VOLUME 86.6 fl (80.0-96.0); MONO # 0.6 10^3/uL (0.0-0.8); MONO % 8.4 % (0.0-5.0); NEUTROPHILS # 4.9 10^3/uL (1.5-8.5); NEUTROPHILS % 64.6 % (36.0-66.0); PLATELET COUNT, AUTOMATED 360 10^3/uL (150-450); RED BLOOD COUNT 5.08 10^6/uL (4.00-5.40); WHITE BLOOD COUNT 7.6 10^3/uL (4.0-10.0)
[2019-05-16 12:17] LABS: ALBUMIN 3.6 GM/DL (3.2-5.2); BILIRUBIN,TOTAL 0.4 MG/DL (0.2-1.0); CALCIUM LEVEL 8.4 MG/DL (8.8-10.2); CHOLESTEROL RISK RATIO 2.982 (<5); CREATININE FOR GFR 1.06 MG/DL (0.55-1.30); GLOMERULAR FILTRATION RATE 53.4 (>39); POTASSIUM SERUM 4.1 MEQ/L (3.5-5.1); TOTAL 25(OH) VITAMIN D 65.4 NG/ML (30.0-100.0); TOTAL PROTEIN 6.6 GM/DL (6.4-8.2)
== END ==
LOC: M LABDRAW1 10:22
PROVIDERS: ATTEND Family Medicine
DX: I10 Essential (primary) hypertension (principal); E55.9 Vitamin D deficiency, unspecified; Z79.82 Long term (current) use of aspirin; Z79.899 Other long term (current) drug therapy

== ENCOUNTER 2019-08-02 07:22 | Day surgery (SDC) | payer MEDICARE, BC ==
[~2019-08-02] VITALS: Ht 160 cm; Wt 90.8 kg
[~2019-08-02 07:22] MED LIST changes: +BIOT1CAP2 PO; +CALC600T60 PO; +LIDOCAINE 1% MDV 20ML VIAL SQ PRN; +LR 1,000 ML IV SCH; +LUTE6CAP9 PO; -SULF1TAB72 PO; +SULF400T14 PO; +TROS20TA3 PO; +VITA1CAP25 PO
[2019-08-02] MEDS ORDERED: ONDANSETRON 4MG/2ML VIAL (J2405) As Ordered ONE ×2 (07:53→10:02)
[2019-08-02] MEDS ORDERED: fentaNYL 100 MCG/2 ML INJECTION (J3010) As Ordered ONE (07:53)
[2019-08-02] MEDS ORDERED: LIDOCAINE 2% INJ 100 MG/5 ML SDV (FOR ANES.) As Ordered ONE (07:53)
[2019-08-02] MEDS ORDERED: propofoL 200 MG/20 ML VIAL As Ordered ONE (07:53)
[2019-08-02] MEDS ORDERED: dexameTHASONE 4 MG/ML 1ML VIAL (J1100) As Ordered ONE (07:53)
[2019-08-02] MEDS ORDERED: MIDAZOLAM INJ 2 MG/2 ML VIAL (J2250) As Ordered ONE (07:54)
[2019-08-02] MEDS ORDERED: ePHEDrine SULFATE 25 MG/5 ML(5MG/ML) SYRINGE As Ordered ONE (09:22)
[2019-08-02] MEDS ORDERED: LR 1,000 ML IV SCH (10:15)
[2019-08-02] MEDS ORDERED: ONDANSETRON 4MG/2ML VIAL (J2405) IV PRN (10:15)
[2019-08-02] MEDS ORDERED: NORCO, ANEXSIA 5/325MG TABLET (HYDROcodone/ACETAMINOPHEN) PO PRN (10:15)
[2019-08-02] MEDS ORDERED: fentaNYL 100 MCG/2 ML INJECTION (J3010) IV PRN (10:15)
[2019-08-02] MEDS ORDERED: IBUPROFEN 400 MG TAB PO PRN (10:15)
[2019-08-02 11:15] VITALS: BP 147/72
--- NOTE | 2019-08-02 13:21 | RO ---
DATE OF PROCEDURE: 08/02/2019 PREOPERATIVE DIAGNOSIS/INDICATION FOR SURGERY: Postmenopausal bleeding with abnormal sono. POSTOPERATIVE DIAGNOSIS: Postmenopausal bleeding with abnormal sono, with polyp seen. PROCEDURE: Dilation and curettage (D and C), hysteroscopy, MyoSure with complete resection of the polyp. SURGEON: Dianne Hill MD MATERIALS AND PROCESSES MANAGER: None. ANESTHESIA: Laryngeal mask airway (LMA). BRIEF DESCRIPTION OF PROCEDURE AND FINDINGS: Mary was brought to the operating room where sufficient LMA anesthesia was induced. She had already had her pessary removed preop. She was prepped, draped and positioned in the usual sterile fashion. The uterus was sounded to 7 and the cervix then carefully dilated and the hysteroscope placed. Within the endometrial cavity two endometrial polyps were visualized, fairly broad-based but readily visible, and a little bit of scar tissue consistent with perhaps a previous D and C type of thing. The tubal ostia were normal in appearance. There were no hypervascular areas. No ulcerations and no frond-like growths. The MyoSure REACH was used to completely resect the polyps and to resect other portions of the endometrium. We then also carried out curettage with good sampling, and then the procedure was ended. Photos were taken to document the case. Estimated blood loss for the procedure about 3 mL. Fluid replacement with crystalloid. Complications: None. Specimen: The endometrium with the polyps. CONDITION AND DISPOSITION: Mary tolerated the procedure well and was recovering in the recovery room in good condition.
== END 2019-08-02 11:15 | disposition home or self-care (01) ==
LOC: M SDC 07:22
PROVIDERS: ATTEND Obstetrics & Gynecology
DX: N84.0 Polyp of corpus uteri (principal); N95.0 Postmenopausal bleeding; I10 Essential (primary) hypertension; E78.2 Mixed hyperlipidemia; N32.81 Overactive bladder; M19.90 Unspecified osteoarthritis, unspecified site; R35.0 Frequency of micturition; R31.9 Hematuria, unspecified; Z79.899 Other long term (current) drug therapy; Z79.82 Long term (current) use of aspirin; Z96.0 Presence of urogenital implants
CPT/HCPCS: 58558; 88305; J1100; J2250; J2405; J3010

== ENCOUNTER → 2019-09-14 | Outpatient (REF) | payer MEDICARE, BC ==
[~2019-09-14] MED LIST changes: -LIDOCAINE 1% MDV 20ML VIAL SQ PRN; -LR 1,000 ML IV SCH
[2019-09-14 13:35] LABS: APPEARANCE, URINE CLEAR (CLEAR); BACTERIA, URINE AUTO 1+ (NEGATIVE); BILIRUBIN, URINE AUTO NEGATIVE (NEGATIVE); BLOOD, URINE BLOOD 1+ (NEGATIVE); COLOR, URINE YELLOW (YELLOW); GLUCOSE, URINE (UA) AUTO NEGATIVE (NEGATIVE); KETONE, URINE AUTO NEGATIVE (NEGATIVE); LEUKOCYTE ESTERASE, URINE AUTO 3+ (NEGATIVE); MUCUS, URINE SMALL (NEGATIVE); NITRITE, URINE AUTO NEGATIVE (NEGATIVE); PROTEIN, URINE AUTO NEGATIVE (NEGATIVE); RBC, URINE AUTO 10 /HPF (0-3); SPECIFIC GRAVITY URINE AUTO 1.009 (1.002-1.035); SQUAMOUS EPITHELIAL CELL UR AU 1 /HPF (0-6); UROBILINOGEN, URINE AUTO 0.2 mg/dL (0.0-2.0); WBC, URINE AUTO 41 /HPF (0-3)
== END ==
LOC: M LAB REF 13:04
PROVIDERS: ATTEND Obstetrics & Gynecology
DX: N39.0 Urinary tract infection, site not specified (principal)

== ENCOUNTER → 2019-12-17 | Outpatient (REF) | payer MEDICARE, BC ==
[2019-12-17 12:40] LABS: APPEARANCE, URINE TURBID (CLEAR); BACTERIA, URINE AUTO 3+ (NEGATIVE); BILIRUBIN, URINE AUTO NEGATIVE (NEGATIVE); BLOOD, URINE BLOOD 2+ (NEGATIVE); COLOR, URINE YELLOW (YELLOW); GLUCOSE, URINE (UA) AUTO NEGATIVE (NEGATIVE); KETONE, URINE AUTO NEGATIVE (NEGATIVE); LEUKOCYTE ESTERASE, URINE AUTO 3+ (NEGATIVE); NITRITE, URINE AUTO POSITIVE (NEGATIVE); PROTEIN, URINE AUTO 1+ mg/dL (NEGATIVE); RBC, URINE AUTO 7 /HPF (0-3); SPECIFIC GRAVITY URINE AUTO 1.006 (1.002-1.035); SQUAMOUS EPITHELIAL CELL UR AU 4 /HPF (0-6); UROBILINOGEN, URINE AUTO 0.2 mg/dL (0.0-2.0); WBC, URINE AUTO TNTC /HPF (0-3)
== END ==
LOC: EEVIPCON 12:03 → M LAB REF 12:03
PROVIDERS: ATTEND Obstetrics & Gynecology
DX: N30.01 Acute cystitis with hematuria (principal)

== ENCOUNTER → 2020-01-21 | Outpatient (REF) | payer MEDICARE, BC ==
[~2020-01-21] MED LIST changes: -ASPI81TA85 PO; +ASPI81TA86 PO
[2020-01-21 19:17] LABS: APPEARANCE, URINE TURBID (CLEAR); BACTERIA, URINE AUTO NEGATIVE (NEGATIVE); BILIRUBIN, URINE AUTO NEGATIVE (NEGATIVE); BLOOD, URINE BLOOD 1+ (NEGATIVE); COLOR, URINE YELLOW (YELLOW); GLUCOSE, URINE (UA) AUTO NEGATIVE (NEGATIVE); KETONE, URINE AUTO NEGATIVE (NEGATIVE); LEUKOCYTE ESTERASE, URINE AUTO 3+ (NEGATIVE); NITRITE, URINE AUTO POSITIVE (NEGATIVE); PROTEIN, URINE AUTO NEGATIVE (NEGATIVE); RBC, URINE AUTO 10 /HPF (0-3); SPECIFIC GRAVITY URINE AUTO 1.009 (1.002-1.035); SQUAMOUS EPITHELIAL CELL UR AU 0 /HPF (0-6); TRANSITIONAL EPITHELIAL AUTO <1 /HPF; UROBILINOGEN, URINE AUTO 0.2 mg/dL (0.0-2.0); WBC, URINE AUTO TNTC /HPF (0-3)
== END ==
LOC: M LAB REF 15:54
PROVIDERS: ATTEND Obstetrics & Gynecology
DX: N30.01 Acute cystitis with hematuria (principal); N39.0 Urinary tract infection, site not specified

== ENCOUNTER → 2020-04-25 | Outpatient (REF) | payer MEDICARE, BC ==
[2020-04-25 17:03] LABS: APPEARANCE, URINE CLEAR (CLEAR); BACTERIA, URINE AUTO NEGATIVE (NEGATIVE); BILIRUBIN, URINE AUTO NEGATIVE (NEGATIVE); BLOOD, URINE BLOOD 2+ (NEGATIVE); COLOR, URINE YELLOW (YELLOW); GLUCOSE, URINE (UA) AUTO NEGATIVE (NEGATIVE); KETONE, URINE AUTO NEGATIVE (NEGATIVE); LEUKOCYTE ESTERASE, URINE AUTO NEGATIVE (NEGATIVE); NITRITE, URINE AUTO NEGATIVE (NEGATIVE); PROTEIN, URINE AUTO NEGATIVE (NEGATIVE); RBC, URINE AUTO 26 /HPF (0-3); SPECIFIC GRAVITY URINE AUTO 1.012 (1.002-1.035); SQUAMOUS EPITHELIAL CELL UR AU 1 /HPF (0-6); UROBILINOGEN, URINE AUTO 0.2 mg/dL (0.0-2.0); WBC, URINE AUTO 10 /HPF (0-3)
== END ==
LOC: M LAB REF 16:02
PROVIDERS: ATTEND Obstetrics & Gynecology
DX: N39.0 Urinary tract infection, site not specified (principal)

== ENCOUNTER → 2020-08-22 | Outpatient (CLI) | payer MEDICARE, BC ==
[~2020-08-22] MED LIST changes: -LISI-538 PO; +LISI20TA33 PO
[2020-08-22 14:28] LABS: ALBUMIN 3.7 GM/DL (3.2-5.2); BILIRUBIN,TOTAL 0.4 MG/DL (0.2-1.0); CALCIUM LEVEL 9.3 MG/DL (8.8-10.2); CHOLESTEROL RISK RATIO 3.111 (<5); CREATININE FOR GFR 1.05 MG/DL (0.55-1.30); GLOMERULAR FILTRATION RATE 53.8 (>39); POTASSIUM SERUM 4.3 MEQ/L (3.5-5.1); TOTAL PROTEIN 7.1 GM/DL (6.4-8.2)
== END ==
LOC: M PLALAB 10:21
PROVIDERS: ATTEND Physician Assistant Medical
DX: E78.2 Mixed hyperlipidemia (principal)

== ENCOUNTER → 2021-01-28 | Outpatient (CLI) | payer MEDICARE, BC ==
[~2021-01-28] MED LIST changes: +ASPI81TA26 PO; +ERGO500029 PO
[2021-01-28 10:23] LABS: BASO % 0.5 % (0.0-1.0); EOS # 0.2 10^3/uL (0.0-0.5); EOS % 2.4 % (0.0-3.0); HEMATOCRIT 43.4 % (36.0-47.0); HEMOGLOBIN 13.9 g/dl (12.0-15.5); LYMPH # 2.2 10^3/uL (1.5-5.0); LYMPH % 28.9 % (24.0-44.0); MEAN CORPUSCULAR HEMOGLOBIN 27.8 pg (27.0-33.0); MEAN CORPUSCULAR VOLUME 86.8 fl (80.0-96.0); MONO # 0.6 10^3/uL (0.0-0.8); MONO % 8.6 % (2.0-8.0); NEUTROPHILS # 4.4 10^3/uL (1.5-8.5); NEUTROPHILS % 59.3 % (36.0-66.0); PLATELET COUNT, AUTOMATED 339 10^3/uL (150-450); WHITE BLOOD COUNT 7.5 10^3/uL (4.0-10.0)
[2021-01-28 10:52] LABS: CREATININE FOR GFR 1.02 MG/DL (0.55-1.30); GLOMERULAR FILTRATION RATE 55.5 (>32); POTASSIUM SERUM 4.5 MEQ/L (3.5-5.1)
[2021-01-28 10:53] LABS: ALBUMIN 3.7 GM/DL (3.2-5.2); BILIRUBIN,TOTAL 0.4 MG/DL (0.2-1.0); CALCIUM LEVEL 8.6 MG/DL (8.8-10.2); TOTAL PROTEIN 6.9 GM/DL (6.4-8.2)
== END ==
LOC: M PLALAB 08:09
PROVIDERS: ATTEND Family Medicine
DX: N95.0 Postmenopausal bleeding (principal)

== ENCOUNTER → 2021-01-31 | Outpatient (CLI) | payer MEDICARE, BC | LOC: M LABSMTC 10:42 | PROVIDERS: ATTEND Anesthesiology | DX: Z01.818 Encounter for other preprocedural examination (principal); Z11.52 Encounter for screening for COVID-19 ==

== ENCOUNTER 2021-02-05 06:19 | Day surgery (SDC) | payer MEDICARE, BC ==
[~2021-02-05] VITALS: Ht 160 cm; Wt 88.9 kg
[~2021-02-05 06:19] MED LIST changes: +LR 1,000 ML IV ONE
[2021-02-05] MEDS ORDERED: fentaNYL 100 MCG/2 ML INJECTION (J3010) As Ordered ONE (07:11)
[2021-02-05] MEDS ORDERED: LIDOCAINE 2% 100MG/5ML SDV (FOR ANES.) As Ordered ONE (07:12)
[2021-02-05] MEDS ORDERED: dexameTHASONE 4 MG/ML 1ML VIAL (J1100 PER 1MG) As Ordered ONE (07:12)
[2021-02-05] MEDS ORDERED: KETOROLAC 60MG 2ML VIAL As Ordered ONE (07:12)
[2021-02-05] MEDS ORDERED: ONDANSETRON 4MG/2ML VIAL As Ordered ONE (07:12)
[2021-02-05] MEDS ORDERED: propofoL 200 MG/20 ML VIAL As Ordered ONE (07:12)
[2021-02-05] MEDS ORDERED: ACETAMINOPHEN 1000MG 100ML IV BTL (OFIRMEV) (J0131 PER 10MG) As Ordered ONE (07:37)
[2021-02-05] MEDS ORDERED: ePHEDrine SULFATE 25 MG/5 ML(5MG/ML) SYRINGE As Ordered ONE (07:41)
[2021-02-05] MEDS ORDERED: PHENYLephrine 500MCG 5ML (100MCG/ML) SYRINGE As Ordered ONE (07:50)
[2021-02-05] MEDS ORDERED: LR 1,000 ML IV SCH ×2 (08:55→09:05)
[2021-02-05] MEDS ORDERED: fentaNYL 100 MCG/2 ML INJECTION (J3010) IV PRN (08:55)
[2021-02-05] MEDS ORDERED: oxyCODONE 5MG TAB PO PRN (08:55)
[2021-02-05] MEDS ORDERED: ONDANSETRON 4MG/2ML VIAL IV PRN (08:55)
[2021-02-05 10:30] VITALS: BP 171/88
--- NOTE | 2021-02-05 16:05 | RO ---
OPERATIVE NOTE DATE OF OPERATION: 02/05/2021 PREOPERATIVE DIAGNOSIS/INDICATION FOR SURGERY: Postmenopausal bleeding and abnormal sonogram. POSTOPERATIVE DIAGNOSIS/INDICATION FOR SURGERY: Postmenopausal bleeding and abnormal sonogram. PROCEDURE: Dilatation and curettage with hysteroscopy. MyoSure. We did not find anything more interesting than some scarring in this patient's uterus. Pictures were taken and of course sampling done SURGEON: Dianne Hill MD BEHAVIORAL HEALTH WORKER: ANESTHESIA: LMA. SPECIMEN: The endometrium that was removed and what I think is actually scar tissue but of course we will pathologic evaluation to be sure. BRIEF DESCRIPTION OF PROCEDURE AND FINDINGS: Mary was brought to the operating room where sufficient LMA anesthesia was induced. She was prepped, draped, and positioned in the usual fashion with the addition of removal of her pessary and then even with gentle prep, the vaginal tissue spotted so it is very possible that the patient's spotting is vaginal although there is not any chaffing or injury to the vagina from the pessary itself, and of course the pessary was replaced postoperatively but removed for the case. The patient was prepped and then in the usual fashion the cervix was dilated and the uterus visualized. Pictures were taken. There was some evidence of some scar tissue. Initially it looked like there might be some small fibroids distorting the endometrial lining but then with resection it really looked more like these are just scar tissue from previous D&C's. Either way, it was all removed and sent to the pathologist for evaluation using the MyoSure so we could do direct visualization and just take all of that tissue off and send it. Then of course final curettage was undertaken and the procedure ended. ESTIMATED BLOOD LOSS: About 3 mL. FLUID REPLACEMENT: Crystalloid. COMPLICATIONS: None. CONDITION AND DISPOSITION: Mary tolerated the procedure well and was recovering in the recovery room in good condition.
== END 2021-02-05 10:55 | disposition home or self-care (01) ==
LOC: M SDC 06:19
PROVIDERS: ATTEND Obstetrics & Gynecology
DX: N95.0 Postmenopausal bleeding (principal); E78.00 Pure hypercholesterolemia, unspecified; I10 Essential (primary) hypertension; Z79.82 Long term (current) use of aspirin; Z79.899 Other long term (current) drug therapy
CPT/HCPCS: 58558; 88305; J0131; J1100; J1885; J2370; J2405; J3010

== ENCOUNTER → 2021-05-26 | Outpatient (REF) | payer MEDICARE, BC ==
[~2021-05-26] MED LIST changes: -LR 1,000 ML IV ONE
[2021-05-26 13:16] LABS: APPEARANCE, URINE CLOUDY (CLEAR); BACTERIA, URINE AUTO NEGATIVE (NEGATIVE); BILIRUBIN, URINE AUTO NEGATIVE (NEGATIVE); BLOOD, URINE BLOOD 1+ (NEGATIVE); COLOR, URINE YELLOW (YELLOW); GLUCOSE, URINE (UA) AUTO NEGATIVE (NEGATIVE); KETONE, URINE AUTO NEGATIVE (NEGATIVE); LEUKOCYTE ESTERASE, URINE AUTO 3+ (NEGATIVE); MUCUS, URINE SMALL (NEGATIVE); NITRITE, URINE AUTO NEGATIVE (NEGATIVE); PROTEIN, URINE AUTO 1+ mg/dL (NEGATIVE); RBC, URINE AUTO 49 /HPF (0-3); SPECIFIC GRAVITY URINE AUTO 1.015 (1.002-1.035); SQUAMOUS EPITHELIAL CELL UR AU 3 /HPF (0-6); UROBILINOGEN, URINE AUTO 0.2 mg/dL (0.0-2.0); WBC, URINE AUTO TNTC /HPF (0-3)
== END ==
LOC: M LAB REF 12:22
PROVIDERS: ATTEND Obstetrics & Gynecology
DX: N39.0 Urinary tract infection, site not specified (principal)

== ENCOUNTER → 2021-06-08 | Outpatient (REF) | payer MEDICARE, BC ==
[2021-06-08 18:39] LABS: APPEARANCE, URINE HAZY (CLEAR); BACTERIA, URINE AUTO NEGATIVE (NEGATIVE); BILIRUBIN, URINE AUTO NEGATIVE (NEGATIVE); BLOOD, URINE BLOOD 2+ (NEGATIVE); COLOR, URINE YELLOW (YELLOW); GLUCOSE, URINE (UA) AUTO NEGATIVE (NEGATIVE); KETONE, URINE AUTO NEGATIVE (NEGATIVE); LEUKOCYTE ESTERASE, URINE AUTO 2+ (NEGATIVE); MUCUS, URINE SMALL (NEGATIVE); NITRITE, URINE AUTO NEGATIVE (NEGATIVE); PROTEIN, URINE AUTO NEGATIVE (NEGATIVE); RBC, URINE AUTO 32 /HPF (0-3); SPECIFIC GRAVITY URINE AUTO 1.013 (1.002-1.035); SQUAMOUS EPITHELIAL CELL UR AU 4 /HPF (0-6); UROBILINOGEN, URINE AUTO 0.2 mg/dL (0.0-2.0); WBC, URINE AUTO 29 /HPF (0-3)
== END ==
LOC: M LAB REF 16:39
PROVIDERS: ATTEND Obstetrics & Gynecology
DX: R31.9 Hematuria, unspecified (principal)

== ENCOUNTER → 2021-06-24 | Outpatient (CLI) | payer MEDICARE, BC ==
[2021-06-24 11:00] LABS: CREATININE FOR GFR 1.02 MG/DL (0.55-1.30); GLOMERULAR FILTRATION RATE 55.5 (>32)
== END ==
LOC: M PLALAB 09:07
PROVIDERS: ATTEND Obstetrics & Gynecology
DX: R31.9 Hematuria, unspecified (principal)

== ENCOUNTER → 2021-06-26 | Outpatient (CLI) | payer MEDICARE, BC ==
[~2021-06-26] MED LIST changes: +ISOVUE-370 76% 100ML VIAL ONE
== END ==
LOC: M PLAIMG 08:00
PROVIDERS: ATTEND Obstetrics & Gynecology
DX: R31.9 Hematuria, unspecified (principal); N28.1 Cyst of kidney, acquired; K80.20 Calculus of gallbladder without cholecystitis without obstruction
CPT/HCPCS: 74178; Q9967

== ENCOUNTER → 2021-09-01 | Outpatient (CLI) | payer MEDICARE, BC ==
[~2021-09-01] MED LIST changes: -ISOVUE-370 76% 100ML VIAL ONE
[2021-09-01 14:08] LABS: BASO % 0.4 % (0.0-1.0); EOS # 0.2 10^3/uL (0.0-0.5); EOS % 2.6 % (0.0-3.0); HEMATOCRIT 44.2 % (36.0-47.0); HEMOGLOBIN 13.9 g/dl (12.0-15.5); LYMPH # 2.1 10^3/uL (1.5-5.0); LYMPH % 30.5 % (24.0-44.0); MEAN CORPUSCULAR HEMOGLOBIN 27.4 pg (27.0-33.0); MEAN CORPUSCULAR HGB CONC 31.4 g/dl (32.0-36.5); MONO # 0.7 10^3/uL (0.0-0.8); MONO % 9.4 % (2.0-8.0); NEUTROPHILS # 3.9 10^3/uL (1.5-8.5); NEUTROPHILS % 56.8 % (36.0-66.0); PLATELET COUNT, AUTOMATED 313 10^3/uL (150-450); RED BLOOD COUNT 5.08 10^6/uL (4.00-5.40); WHITE BLOOD COUNT 6.9 10^3/uL (4.0-10.0)
[2021-09-01 14:46] LABS: ALBUMIN 3.7 GM/DL (3.2-5.2); BILIRUBIN,TOTAL 0.5 MG/DL (0.2-1.0); CALCIUM LEVEL 9.3 MG/DL (8.8-10.2); CHOLESTEROL RISK RATIO 3.062 (<5); CREATININE FOR GFR 1.08 MG/DL (0.55-1.30); POTASSIUM SERUM 4.5 MEQ/L (3.5-5.1); TOTAL PROTEIN 6.7 GM/DL (6.4-8.2)
[2021-09-01 14:49] LABS: TOTAL 25(OH) VITAMIN D 55.9 NG/ML (30.0-100.0)
== END ==
LOC: M PLALAB 09:28
PROVIDERS: ATTEND Family Medicine
DX: E55.9 Vitamin D deficiency, unspecified (principal); I10 Essential (primary) hypertension; Z79.899 Other long term (current) drug therapy

== ENCOUNTER → 2022-03-04 | Outpatient (REF) | payer MEDICARE, BC | LOC: M SFHCWAGY 17:03 | PROVIDERS: ATTEND Nurse Practitioner Family | DX: Z12.4 Encounter for screening for malignant neoplasm of cervix (principal); N95.2 Postmenopausal atrophic vaginitis | CPT/HCPCS: 87624; G0123 ==

== ENCOUNTER → 2022-05-06 | Outpatient (CLI) | payer MEDICARE, BC | LOC: M WHC 10:03 | PROVIDERS: ATTEND Family Medicine | DX: Z13.820 Encounter for screening for osteoporosis (principal); M85.851 Other specified disorders of bone density and structure, right thigh; M85.852 Other specified disorders of bone density and structure, left thigh ==

== ENCOUNTER → 2022-10-21 | Outpatient (CLI) | payer MEDICARE, BC ==
[2022-10-21 11:32] LABS: BASO % 0.4 % (0.0-1.0); EOS # 0.2 10^3/uL (0.0-0.5); EOS % 2.3 % (0.0-3.0); HEMATOCRIT 44.1 % (36.0-47.0); HEMOGLOBIN 13.7 g/dl (12.0-15.5); LYMPH # 2.4 10^3/uL (1.5-5.0); MEAN CORPUSCULAR HEMOGLOBIN 27.2 pg (27.0-33.0); MEAN CORPUSCULAR HGB CONC 31.1 g/dl (32.0-36.5); MEAN CORPUSCULAR VOLUME 87.5 fl (80.0-96.0); MONO # 0.7 10^3/uL (0.0-0.8); MONO % 8.7 % (2.0-8.0); NEUTROPHILS # 4.6 10^3/uL (1.5-8.5); NEUTROPHILS % 58.3 % (36.0-66.0); PLATELET COUNT, AUTOMATED 300 10^3/uL (150-450); RED BLOOD COUNT 5.04 10^6/uL (4.00-5.40); WHITE BLOOD COUNT 7.8 10^3/uL (4.0-10.0)
[2022-10-21 12:06] LABS: CHOLESTEROL RISK RATIO 3.1 (<5); CREATININE FOR GFR 1.02 MG/DL (0.55-1.30); GLOMERULAR FILTRATION RATE 55.2 (>32); HDL CHOLESTEROL 63.7 MG/DL (>40); LDL CHOLESTEROL 101.7 MG/DL (<100); NON-HDL-C 134.3 MG/DL
== END ==
LOC: M PLALAB 08:18
PROVIDERS: ATTEND Family Medicine
DX: I10 Essential (primary) hypertension (principal)

== ENCOUNTER → 2022-12-31 | Outpatient (REF) | payer MEDICARE, BC | LOC: M SFHCWAGY 13:09 | PROVIDERS: ATTEND Nurse Practitioner Family | DX: Z12.4 Encounter for screening for malignant neoplasm of cervix (principal); N95.2 Postmenopausal atrophic vaginitis | CPT/HCPCS: 87624; G0123 ==

== ENCOUNTER → 2023-06-14 | Outpatient (REF) | payer MEDICARE, BC | LOC: M LAB REF 17:23 | PROVIDERS: ATTEND Family Medicine | DX: R35.0 Frequency of micturition (principal) ==

== ENCOUNTER → 2023-12-20 | Outpatient (REF) | payer MEDICARE, BC | LOC: M LAB REF 16:57 | PROVIDERS: ATTEND Nurse Practitioner Family | DX: N39.0 Urinary tract infection, site not specified (principal); R30.0 Dysuria ==

== ENCOUNTER → 2024-01-31 | Outpatient (REF) | payer MEDICARE, BC | LOC: M LAB REF 17:06 | PROVIDERS: ATTEND Nurse Practitioner Family | DX: N39.0 Urinary tract infection, site not specified (principal); R35.0 Frequency of micturition ==

== ENCOUNTER → 2024-02-16 | Outpatient (CLI) | payer MEDICARE, BC ==
[2024-02-16 11:24] LABS: BASO % 0.1 % (0.0-1.0); EOS # 0.2 10^3/uL (0.0-0.5); EOS % 1.8 % (0.0-3.0); HEMATOCRIT 42.6 % (36.0-47.0); HEMOGLOBIN 13.6 g/dl (12.0-15.5); LYMPH # 1.9 10^3/uL (1.5-5.0); LYMPH % 22.2 % (24.0-44.0); MEAN CORPUSCULAR HEMOGLOBIN 27.8 pg (27.0-33.0); MEAN CORPUSCULAR HGB CONC 31.9 g/dl (32.0-36.5); MEAN CORPUSCULAR VOLUME 87.1 fl (80.0-96.0); MONO # 0.6 10^3/uL (0.0-0.8); MONO % 7.6 % (2.0-8.0); NEUTROPHILS # 5.7 10^3/uL (1.5-8.5); NEUTROPHILS % 68.1 % (36.0-66.0); PLATELET COUNT, AUTOMATED 323 10^3/uL (150-450); RED BLOOD COUNT 4.89 10^6/uL (4.00-5.40); WHITE BLOOD COUNT 8.3 10^3/uL (4.0-10.0)
[2024-02-16 11:50] LABS: ALBUMIN 3.8 G/DL (3.2-5.2); BILIRUBIN,TOTAL 0.7 MG/DL (0.3-1.2); CALCIUM LEVEL 9.3 MG/DL (8.3-10.6); CHOLESTEROL RISK RATIO 3.17 (<5); CREATININE FOR GFR 0.95 MG/DL (0.55-1.30); GLOMERULAR FILTRATION RATE 59.8 (>32); HDL CHOLESTEROL 62.6 MG/DL (>40); LDL CHOLESTEROL 97.4 MG/DL (<100); NON-HDL-C 136.4 MG/DL; POTASSIUM SERUM 4.6 MMOL/L (3.5-5.1); TOTAL PROTEIN 6.8 G/DL (5.7-8.2)
== END ==
LOC: M PLALAB 08:25
PROVIDERS: ATTEND Family Medicine
DX: I10 Essential (primary) hypertension (principal)

== ENCOUNTER → 2024-02-28 | Outpatient (REF) | payer MEDICARE, BC ==
[2024-02-28 18:20] LABS: APPEARANCE, URINE CLOUDY (CLEAR); BACTERIA, URINE AUTO 2+ (NEGATIVE); BILIRUBIN, URINE AUTO NEGATIVE (NEGATIVE); BLOOD, URINE BLOOD NEGATIVE (NEGATIVE); COLOR, URINE YELLOW (YELLOW); GLUCOSE, URINE (UA) AUTO NEGATIVE (NEGATIVE); KETONE, URINE AUTO NEGATIVE (NEGATIVE); LEUKOCYTE ESTERASE, URINE AUTO 3+ (NEGATIVE); NITRITE, URINE AUTO NEGATIVE (NEGATIVE); PROTEIN, URINE AUTO NEGATIVE (NEGATIVE); RBC, URINE AUTO 6 /HPF (0-3); SPECIFIC GRAVITY URINE AUTO 1.005 (1.002-1.035); SQUAMOUS EPITHELIAL CELL UR AU 4 /HPF (0-6); UROBILINOGEN, URINE AUTO 0.2 mg/dL (0.0-2.0); WBC, URINE AUTO TNTC /HPF (0-3)
== END ==
LOC: M LAB REF 17:19
PROVIDERS: ATTEND Family Medicine
DX: N32.81 Overactive bladder (principal); R35.0 Frequency of micturition

== ENCOUNTER → 2024-03-22 | Outpatient (CLI) | payer MEDICARE, BC | LOC: M RAD 08:23 | PROVIDERS: ATTEND Family Medicine | DX: R06.02 Shortness of breath (principal) ==

== ENCOUNTER → 2024-05-07 | Outpatient (CLI) | payer MEDICARE, BC | LOC: M WHC 10:20 | PROVIDERS: ATTEND Nurse Practitioner Family | DX: Z13.820 Encounter for screening for osteoporosis (principal); M85.851 Other specified disorders of bone density and structure, right thigh; M85.88 Other specified disorders of bone density and structure, other site ==

== ENCOUNTER → 2024-08-24 | Outpatient (CLI) | payer MEDICARE, BC ==
[2024-08-24 10:01] LABS: BASO % 0.5 % (0.0-1.0); EOS # 0.2 10^3/uL (0.0-0.5); EOS % 3.2 % (0.0-3.0); HEMATOCRIT 42.6 % (36.0-47.0); HEMOGLOBIN 13.3 g/dl (12.0-15.5); LYMPH # 1.9 10^3/uL (1.5-5.0); LYMPH % 29.6 % (24.0-44.0); MEAN CORPUSCULAR HEMOGLOBIN 26.7 pg (27.0-33.0); MEAN CORPUSCULAR HGB CONC 31.2 g/dl (32.0-36.5); MEAN CORPUSCULAR VOLUME 85.4 fl (80.0-96.0); MONO # 0.5 10^3/uL (0.0-0.8); MONO % 7.9 % (2.0-8.0); NEUTROPHILS # 3.7 10^3/uL (1.5-8.5); NEUTROPHILS % 58.5 % (36.0-66.0); PLATELET COUNT, AUTOMATED 310 10^3/uL (150-450); RED BLOOD COUNT 4.99 10^6/uL (4.00-5.40); WHITE BLOOD COUNT 6.3 10^3/uL (4.0-10.0)
[2024-08-24 10:36] LABS: THYROID STIMULATING HORMONE 5.259 uIU/ML (0.55-4.78)
[2024-08-24 10:37] LABS: ALBUMIN 3.6 G/DL (3.2-5.2); BILIRUBIN,TOTAL 0.6 MG/DL (0.3-1.2); CREATININE FOR GFR 0.95 MG/DL (0.55-1.30); GLOMERULAR FILTRATION RATE 59.8 (>32); POTASSIUM SERUM 4.4 MMOL/L (3.5-5.1); TOTAL PROTEIN 6.9 G/DL (5.7-8.2)
[2024-08-25 10:08] LABS: LDL DIRECT 117 mg/dL (<100)
[2024-08-28 18:26] LABS: NT PRO BNP SO < 36 pg/mL (<450)
== END ==
LOC: M LAB 08:37
PROVIDERS: ATTEND Internal Medicine Cardiovascular Disease
DX: E78.2 Mixed hyperlipidemia (principal); I50.32 Chronic diastolic (congestive) heart failure; I27.22 Pulmonary hypertension due to left heart disease; I11.0 Hypertensive heart disease with heart failure; Z13.29 Encounter for screening for other suspected endocrine disorder; Z13.1 Encounter for screening for diabetes mellitus; I48.0 Paroxysmal atrial fibrillation

== ENCOUNTER → 2024-09-03 | Outpatient (CLI) | payer MEDICARE, BC ==
[2024-09-03 13:31] LABS: BASO % 0.3 % (0.0-1.0); EOS # 0.2 10^3/uL (0.0-0.5); EOS % 2.3 % (0.0-3.0); HEMATOCRIT 41.9 % (36.0-47.0); HEMOGLOBIN 12.9 g/dl (12.0-15.5); LYMPH # 2.1 10^3/uL (1.5-5.0); LYMPH % 27.1 % (24.0-44.0); MEAN CORPUSCULAR HEMOGLOBIN 26.8 pg (27.0-33.0); MEAN CORPUSCULAR HGB CONC 30.8 g/dl (32.0-36.5); MEAN CORPUSCULAR VOLUME 86.9 fl (80.0-96.0); MONO # 0.8 10^3/uL (0.0-0.8); MONO % 10.2 % (2.0-8.0); NEUTROPHILS # 4.6 10^3/uL (1.5-8.5); NEUTROPHILS % 59.8 % (36.0-66.0); PLATELET COUNT, AUTOMATED 337 10^3/uL (150-450); RED BLOOD COUNT 4.82 10^6/uL (4.00-5.40); WHITE BLOOD COUNT 7.7 10^3/uL (4.0-10.0)
[2024-09-03 13:35] LABS: CREATININE FOR GFR 0.97 MG/DL (0.55-1.30); GLOMERULAR FILTRATION RATE 58.4 (>32); POTASSIUM SERUM 4.5 MMOL/L (3.5-5.1)
== END ==
LOC: M PLALAB 09:13
PROVIDERS: ATTEND Internal Medicine Cardiovascular Disease
DX: I50.32 Chronic diastolic (congestive) heart failure (principal); I48.0 Paroxysmal atrial fibrillation

== ENCOUNTER → 2024-10-22 | Outpatient (CLI) | payer MEDICARE, BC ==
[2024-10-22 10:39] LABS: ALBUMIN 3.1 G/DL (3.2-5.2); BILIRUBIN,TOTAL 0.7 MG/DL (0.3-1.2); CALCIUM LEVEL 8.8 MG/DL (8.3-10.6); CHOLESTEROL RISK RATIO 2.82 (<5); CREATININE FOR GFR 1.06 MG/DL (0.55-1.30); GLOMERULAR FILTRATION RATE 51.8 (>32); HDL CHOLESTEROL 54.5 MG/DL (>40); LDL CHOLESTEROL 72.1 MG/DL (<100); MAGNESIUM LEVEL 1.9 MG/DL (1.8-2.4); NON-HDL-C 99.5 MG/DL; POTASSIUM SERUM 4.4 MMOL/L (3.5-5.1); TOTAL PROTEIN 6.1 G/DL (5.7-8.2)
== END ==
LOC: M PLALAB 08:14
PROVIDERS: ATTEND Internal Medicine Cardiovascular Disease
DX: E78.2 Mixed hyperlipidemia (principal)

== ENCOUNTER → 2025-02-14 | Outpatient (CLI) | payer MEDICARE, BC ==
[2025-02-14 17:07] LABS: CALCIUM LEVEL 9.1 MG/DL (8.3-10.6); CARBON DIOXIDE LEVEL 28.0 MMOL/L (20-31); CHLORIDE LEVEL 104.0 MMOL/L (98-107); CREATININE FOR GFR 0.99 MG/DL (0.55-1.30); GLOMERULAR FILTRATION RATE 56.2 (>32); POTASSIUM SERUM 4.3 MMOL/L (3.5-5.1); SODIUM LEVEL 143.0 MMOL/L (136-145)
== END ==
LOC: M PLALAB 14:30
PROVIDERS: ATTEND Nurse Practitioner Family
DX: N39.0 Urinary tract infection, site not specified (principal); R35.0 Frequency of micturition

== ENCOUNTER → 2025-03-13 | Outpatient (REF) | payer MEDICARE, BC | LOC: M LAB REF 17:05 | PROVIDERS: ATTEND Nurse Practitioner Family | DX: R35.0 Frequency of micturition (principal) ==